=== PATIENT | male | born 1990 | race Caucasian/White ===

== ENCOUNTER 2021-09-01 06:16 | Day surgery (SDC) | payer OTHER ==
[~2021-09-01 06:16] MED LIST: Lactated Ringers 1,000 ML IV SCH
[2021-09-01] MEDS ORDERED: Propofol 200 MG/20 ML SDV ONE (07:09)
[2021-09-01] MEDS ORDERED: fentaNYL 100 MCG/2 ML SDV ONE (08:19)
[2021-09-01] MEDS ORDERED: Dexmedetomidine 200 MCG/2 ML SDV ONE (08:59)
== END 2021-09-01 08:55 | disposition home or self-care (01) ==
LOC: MW.SDS 06:16
PROVIDERS: ATTEND Surgery
DX: K29.51 Unspecified chronic gastritis with bleeding (principal); K44.9 Diaphragmatic hernia without obstruction or gangrene; K63.89 Other specified diseases of intestine; K22.10 Ulcer of esophagus without bleeding; K22.89 Other specified disease of esophagus; K21.00 Gastro-esophageal reflux disease with esophagitis, without bleeding; F41.9 Anxiety disorder, unspecified; G47.30 Sleep apnea, unspecified; Z91.048 Other nonmedicinal substance allergy status; E66.9 Obesity, unspecified; Z68.30 Body mass index [BMI] 30.0-30.9, adult; Z79.899 Other long term (current) drug therapy
CPT/HCPCS: 43239; J2704; J3010; J7120; 00731

== ENCOUNTER 2024-06-10 04:49 | Emergency (ER) | payer SELFPAY | END 2024-06-10 06:33 | disposition home or self-care (01) | LOC: MW.ED 04:49 | DX: J10.1 Influenza due to other identified influenza virus with other respiratory manifestations (principal); Z75.8 Other problems related to medical facilities and other health care; Z91.048 Other nonmedicinal substance allergy status | CPT/HCPCS: 71046; 71046-26; 87428-QW; 99283 ==

== ENCOUNTER 2024-06-12 08:00 | Inpatient (IN) | payer SELFPAY ==
[2024-06-12] MEDS ORDERED: Sodium Chloride 0.9% 10 ML Syringe FLUSH PRN ×3 (08:20→10:50)
[2024-06-12] MEDS ORDERED: Sodium Chloride 0.9% 20 ML SDV IV PRN (08:20)
[2024-06-12] MEDS ORDERED: Sodium Chloride 0.9% 2.5 ML Syringe FLUSH PRN ×3 (08:20→10:50)
[2024-06-12] MEDS: Lactated Ringers 1,000 ML IV ONE ×2 (08:27→09:45)
[2024-06-12] MEDS: Ondansetron 4 MG/2 ML SDV IVPUSH ONE (08:28)
[2024-06-12 09:17] LABS: HEMATOCRIT 42.8 % (42.0-52.0); HEMOGLOBIN 13.8 g/dL (14.0-18.0); MEAN CORPUSCULAR HEMOGLOBIN 28.3 pg (28.0-32.0); MEAN CORPUSCULAR HGB CONC 32.2 g/dL (32.0-36.0); MEAN CORPUSCULAR VOLUME 87.7 fL (83.0-99.0); MEAN PLATELET VOLUME 10.6 fL (9.4-12.4); PLATELET COUNT,PLT 194 K/uL (150-400); RED BLOOD CELL COUNT 4.88 M/uL (4.52-5.90)
[2024-06-12 09:21] LABS: INR 1.13 (0.86-1.11)
[2024-06-12] MEDS: Albuterol/Ipratropium 3.0-0.5 MG/3 ML Neb Soln NEB ONE (09:25)
[2024-06-12 09:30] LABS: A/G RATIO 0.7 (0.9-1.6); ALBUMIN 2.9 g/dL (3.4-5.0); BILIRUBIN TOTAL 0.5 mg/dL (0.2-1.0); CALCIUM 8.2 mg/dL (8.5-10.1); CARBON DIOXIDE,CO2 23.7 mmol/L (21.0-32.0); CREATININE 1.5 mg/dL (0.8-1.3); EST CRCL DRUG DOSING (CG) 62.03 mL/min; POTASSIUM,K 3.9 mmol/L (3.5-5.1); PROTEIN TOTAL,TP 6.9 g/dL (6.4-8.2)
[2024-06-12 10:02] LABS: LYMPHOCYTES PERCENT MAN 8 % (24-44); MONOCYTES ABSOLUTE MAN 0.15 K/uL (0.00-0.80); MONOCYTES PERCENT MAN 4 % (0-8); SEG NEUTROPHILS ABSOLUTE MAN 3.26 K/uL (1.80-7.70); SEG NEUTROPHILS PERCENT MAN 88 % (41-71)
[2024-06-12 10:07] LABS: LACTIC ACID 1.4 mmol/L (0.4-2.0)
[2024-06-12] MEDS ORDERED: Melatonin 3 MG Tab PO PRN (10:50)
[2024-06-12] MEDS ORDERED: Ondansetron 4 MG/2 ML SDV IVPUSH PRN (10:50)
[2024-06-12] MEDS ORDERED: Docusate Sodium 100 MG Cap PO PRN (10:50)
[2024-06-12] MEDS: Oseltamivir 75 MG Cap PO ONE (10:53)
[2024-06-12] MEDS: Azithromycin 500 MG in Sodium Chloride 0.9% 250 ML IV ONE (10:54)
[2024-06-12] MEDS: cefTRIAXone 2 GM in Sodium Chloride 0.9% 50 ML IV ONE (10:54)
[2024-06-12] MEDS: Iopamidol 755 MG/ML 500 ML Multipack Bottle IVPUSH STA (11:32)
[2024-06-12] MEDS: Enoxaparin 40 MG/0.4 ML Syringe SUBCUT SCH (12:18)
[2024-06-12] MEDS: Sodium Chloride 0.9% 1,000 ML IV SCH (12:18)
[2024-06-12 14:28] LABS: CORONAVIRUS COVID-19 NAA NEGATIVE (NEGATIVE); INFLUENZA A NAA POSITIVE (NEGATIVE); INFLUENZA B NAA NEGATIVE (NEGATIVE)
[2024-06-12] MEDS: Acetaminophen 325 MG Tab PO PRN (17:44)
[2024-06-12] MEDS: Oseltamivir 75 MG Cap PO SCH (20:55)
[2024-06-12] MEDS: Albuterol/Ipratropium 3.0-0.5 MG/3 ML Neb Soln NEB PRN (22:32)
[2024-06-12] MEDS: Benzocaine/Cetylpyridinium/Menthol Lozenge MUCMEM PRN (22:33)
[2024-06-12] MEDS: Codeine/guaiFENesin 10-100 MG/5 ML Syrup 5 ML Cup PO PRN (23:38)
[2024-06-12] MEDS: Sodium Chloride 0.9% 1,000 ML IV ONE (23:51)
[2024-06-13 06:08] LABS: HEMATOCRIT 36.9 % (42.0-52.0); MEAN CORPUSCULAR HEMOGLOBIN 28.8 pg (28.0-32.0); MEAN CORPUSCULAR HGB CONC 32.5 g/dL (32.0-36.0); MEAN CORPUSCULAR VOLUME 88.5 fL (83.0-99.0); MEAN PLATELET VOLUME 9.9 fL (9.4-12.4); PLATELET COUNT,PLT 184 K/uL (150-400); RED BLOOD CELL COUNT 4.17 M/uL (4.52-5.90); WHITE BLOOD CELL COUNT,WBC 4.35 K/uL (3.9-11.3)
[2024-06-13 06:21] LABS: CALCIUM 7.4 mg/dL (8.5-10.1); CARBON DIOXIDE,CO2 23.1 mmol/L (21.0-32.0); CREATININE 1.2 mg/dL (0.8-1.3); EST CRCL DRUG DOSING (CG) 77.53 mL/min; MAGNESIUM 1.7 mg/dL (1.8-2.4); POTASSIUM,K 3.9 mmol/L (3.5-5.1)
[2024-06-13 07:09] LABS: LYMPHOCYTES PERCENT MAN 23 % (24-44); MONOCYTES ABSOLUTE MAN 0.09 K/uL (0.00-0.80); MONOCYTES PERCENT MAN 2 % (0-8); SEG NEUTROPHILS ABSOLUTE MAN 3.26 K/uL (1.80-7.70); SEG NEUTROPHILS PERCENT MAN 75 % (41-71)
[2024-06-13] MEDS: cefTRIAXone 2 GM in Sodium Chloride 0.9% 50 ML IV SCH (08:23)
[2024-06-13 08:24] LABS: PCO2 ARTERIAL 37 mmHG (35-45); PO2 ARTERIAL 54 mmHG (80-105)
[2024-06-13 08:25] LABS: BICARBONATE,ARTERIAL 21 mEq/L (22-26)
[2024-06-13] MEDS: Magnesium Sulf/Wat 2 GM/50 mL 2 GM in Premix Bag 1 BAG IV ONE (09:07)
[2024-06-13] MEDS: methylPREDNISolone Sodium Succinate 125 MG/2 ML SDV IVPUSH ONE (09:07)
[2024-06-13] MEDS: Azithromycin 500 MG in Sodium Chloride 0.9% 250 ML IV SCH (09:13)
[2024-06-13] MEDS: Pantoprazole 40 MG in Sodium Chloride 0.9% 10 ML IVPUSH ONE (09:47)
[2024-06-13] MEDS ORDERED: Norepinephrine Bit/D5W Premix 250 ML IV SCH (10:00)
[2024-06-13] MEDS ORDERED: Benzocaine 20% Topical Spray UD MUCMEM ONE (10:33)
[2024-06-13] MEDS: fentaNYL/Normal Saline 2,500 MCG in Premix Bag 1 BAG IV PRN (11:07)
[2024-06-13] MEDS: propofoL 1,000 MG/100 ML 100 ML IV SCH (11:07)
[2024-06-14 05:03] LABS: BORDETELLA PARAPERT IS1001 Not Detected (Not Detected)
== END 2024-06-13 11:45 | DRG 208 ==
LOC: MW.ED 08:00 → MW.MS 10:39 → MW.ICU 06-13 08:47
PROVIDERS: ADMIT Family Medicine; ATTEND Family Medicine
PROC: 5A09357 Assistance with Respiratory Ventilation, Less than 24 Consecutive Hours, Continuous Positive Airway Pressure (ICD-10-PCS; 2024-06-12)
PROC: 5A1935Z Respiratory Ventilation, Less than 24 Consecutive Hours (ICD-10-PCS; principal; 2024-06-13)
PROC: 0BH17EZ Insertion of Endotracheal Airway into Trachea, Via Natural or Artificial Opening (ICD-10-PCS; 2024-06-13)
PROC: 03HY32Z Insertion of Monitoring Device into Upper Artery, Percutaneous Approach (ICD-10-PCS; 2024-06-13)
PROC: 4A133B1 Monitoring of Arterial Pressure, Peripheral, Percutaneous Approach (ICD-10-PCS; 2024-06-13)
PROC: 4A133J1 Monitoring of Arterial Pulse, Peripheral, Percutaneous Approach (ICD-10-PCS; 2024-06-13)
PROC: 02HV33Z Insertion of Infusion Device into Superior Vena Cava, Percutaneous Approach (ICD-10-PCS; 2024-06-13)
PROC: 4A033R1 Measurement of Arterial Saturation, Peripheral, Percutaneous Approach (ICD-10-PCS; 2024-06-13)
DX: J10.08 Influenza due to other identified influenza virus with other specified pneumonia (principal); J96.01 Acute respiratory failure with hypoxia; J12.9 Viral pneumonia, unspecified; G47.30 Sleep apnea, unspecified; E66.9 Obesity, unspecified; F41.9 Anxiety disorder, unspecified; R79.89 Other specified abnormal findings of blood chemistry; Z68.36 Body mass index [BMI] 36.0-36.9, adult; Z87.81 Personal history of (healed) traumatic fracture; Z91.09 Other allergy status, other than to drugs and biological substances
CPT/HCPCS: 0240U; 31500; 36415; 36556; 36600; 36620; 51702; 71045; 71045-26; 71275; 71275-26; 80048; 80053; 82803; 83605; 83690; 83735; 83880; 84100; 84484; 85025; 85379; 85610; 87040; 87486; 87581; 87633; 93005; 93010; 94002; 94640; 94660; 96361; 96374; 99222; 99239; 99284; 99285-25; A9270-GY; J0456; J0696; J1650; J2405; J2470; J2704; J2919; J3475; J3490; J7030; J7050; J7120; J7620-GY; Q9967